=== PATIENT | female | born 1995 | race African-American/Black ===

== ENCOUNTER → 2024-10-29 11:14 | Outpatient (REF) | payer OTHER, SELFPAY ==
[2024-10-29 13:20] LABS: Hepatitis B Surface Antibody Negative
[2024-10-31 10:26] LABS: Quantiferon Mitogen minus NIL 9.72 IU/mL; Quantiferon NIL 0.28 IU/mL; Quantiferon Plus TB1 minus NIL 0.12 IU/mL (<=0.34); Quantiferon Plus TB2 minus NIL 0.14 IU/mL (<=0.34); Quantiferon TB Gold Plus Negative (Negative)
== END ==
LOC: OHS 11:14
PROVIDERS: ATTENDING PHYSICIAN Nurse Practitioner Family
DX: Z23 Encounter for immunization (principal)
CPT/HCPCS: 36415; 86480; 86706